=== PATIENT | female | born 1985 | race Caucasian/White ===

== ENCOUNTER 2017-01-03 16:25 | Emergency (ER) | payer OTHER ==
[2017-01-03] MEDS ORDERED: LITHIUM (16:56)
[2017-01-03] MEDS ORDERED: PROZAC (16:56)
[2017-01-03] MEDS ORDERED: AMITRIPTYLINE100 MG (16:57)
[2017-01-03] MEDS ORDERED: GRALISE1 EACH (16:57)
[2017-01-03] MEDS ORDERED: PAXIL (16:57)
== END 2017-01-03 19:03 | disposition home or self-care (01) ==
LOC: SED 16:25
DX: T40.1X1A Poisoning by heroin, accidental (unintentional), initial encounter (principal); F19.10 Other psychoactive substance abuse, uncomplicated; Z79.899 Other long term (current) drug therapy
CPT/HCPCS: 96374; 99283; J2310